=== PATIENT | female | born 1945 | race Caucasian/White ===

== ENCOUNTER 2018-04-19 10:44 | Outpatient (CLI) | payer MEDICARE | END 2018-04-19 10:45 | disposition home or self-care (01) | LOC: BICMAMMO 10:44 | PROVIDERS: ATTEND Internal Medicine | DX: Z12.31 Encounter for screening mammogram for malignant neoplasm of breast (principal) | CPT/HCPCS: 77063; 77067 ==

== ENCOUNTER 2019-02-23 13:53 | Outpatient (CLI) | payer MEDICARE ==
--- NOTE | 2019-02-23 14:31 | MMO ---
Left Breast MAMMO Unilat Diag [facility] LT+FRANK. CLINICAL HISTORY: Patient is 74 years old and is seen for diagnostic exam and lump or thickening in the left breast. The patient has no family history of breast cancer. The patient has no personal history of cancer. The patient has a history of right Excisional Biopsy at age 53 - benign. VIEWS: The views performed were: left craniocaudal with tomosynthesis; left mediolateral oblique with tomosynthesis; and left mediolateral with tomosynthesis. FILMS COMPARED: The present examination has been compared to prior imaging studies performed at [facility] on 04/08/2016, 04/11/2017, 04/19/2018 and 02/23/2019. MAMMOGRAM FINDINGS: There are scattered fibroglandular densities. There are no suspicious masses, suspicious calcifications, or new areas of architectural distortion. IMPRESSION: THERE IS NO MAMMOGRAPHIC EVIDENCE OF MALIGNANCY. A ROUTINE FOLLOW-UP MAMMOGRAM IN 1 YEAR IS RECOMMENDED. THE RESULTS OF THIS EXAM WERE SENT TO THE PATIENT. ACR BI-RADS Category 1 - Negative MAMMOGRAPHY NOTE: 1. A negative mammogram report should not delay a biopsy if a dominant of clinically suspicious mass is present. 2. Approximately 10% to 15% of breast cancers are not detected by mammography. 3. Adenosis and dense breasts may obscure an underlying neoplasm. Reported by: LASHAUN ROSEN MD Electonically Signed: [id number]
--- NOTE | 2019-02-23 16:15 | ULT ---
LEFT BREAST ULTRASOUND: Date: 02/23/19 COMPARISON: Mammogram dated 02/23/19, 04/19/18, 04/11/17. HISTORY: Palpable mass per ordering clinician in the left breast. Patient reports dimpling in the 8-9 o'clock position of the left breast. This has been going on for approximately 1 month. TECHNIQUE: Multiplanar Cabrera scale and color Doppler images were obtained in a targeted ultrasound at the 8-9 o'c lock position of the left breast in the area of dimpling. FINDINGS: Normal appearing breast parenchyma is seen. No suspicious mass or shadowing is seen. IMPRESSION: BI-RADS Category 1 - Negative. Annual screening mammography is recommended. POS: [facility]
== END 2019-02-23 13:54 | disposition home or self-care (01) ==
LOC: BICMAMMO 13:53
PROVIDERS: ATTEND Internal Medicine
DX: N63.20 Unspecified lump in the left breast, unspecified quadrant (principal); Z91.89 Other specified personal risk factors, not elsewhere classified
CPT/HCPCS: 76642; 77065; G0279

== ENCOUNTER 2021-03-05 | Outpatient (CLI) | payer MEDICARE | END 2021-03-05 08:56 | disposition home or self-care (01) ==

== ENCOUNTER 2021-09-08 09:49 | Outpatient (CLI) | payer MEDICARE | END 2021-09-08 09:50 | disposition home or self-care (01) | LOC: BICMAMMO 09:49 | PROVIDERS: ATTEND Internal Medicine | DX: M85.80 Other specified disorders of bone density and structure, unspecified site (principal); M81.0 Age-related osteoporosis without current pathological fracture | CPT/HCPCS: 77080 ==

== ENCOUNTER 2022-09-09 09:26 | Outpatient (CLI) | payer MEDICARE | END 2022-09-09 09:27 | disposition home or self-care (01) | LOC: BICMAMMO 09:26 | PROVIDERS: ATTEND Internal Medicine Endocrinology, Diabetes & Metabolism | DX: M81.8 Other osteoporosis without current pathological fracture (principal) | CPT/HCPCS: 77080 ==